=== PATIENT | male | born 2000 | race Caucasian/White ===

== ENCOUNTER 2022-12-21 08:46 | Outpatient (CLI) | payer BC, SELFPAY ==
[2022-12-21 21:34] LABS: Alanine Aminotransferase 42 U/L (6-50); Albumin Level 4.5 g/dL (3.5-5.1); Alkaline Phosphatase 68 U/L (38-126); Anion Gap 11 mmol/L (8-16); Aspartate Amino Transferase 42 U/L (17-59); Bilirubin,Total 0.8 mg/dL (0.2-1.3); Blood Urea Nitrogen 14 mg/dL (9-20); Calcium 8.8 mg/dL (8.4-10.2); Carbon Dioxide 26 mmol/L (22-30); Chloride 105 mmol/L (98-107); Cholesterol 182 mg/dL (0-200); Estimated Glomerular Filt Rate > 60; Glucose 70 mg/dL (65-110); HDL Direct 29 mg/dL; Potassium 4.3 mmol/L (3.4-5.0); Sodium 142 mmol/L (137-145); Triglycerides 202 mg/dL (<150)
[2022-12-21 21:44] LABS: LDL Cholesterol Direct 129 mg/dL
== END 2022-12-21 08:47 | disposition home or self-care (01) ==
LOC: ANHGOSHLAB 08:54
PROVIDERS: PCP Internal Medicine
DX: F84.0 Autistic disorder (principal); F79 Unspecified intellectual disabilities; E88.81 Metabolic syndrome and other insulin resistance; F34.81 Disruptive mood dysregulation disorder
CPT/HCPCS: 36415; 80053; 80061